=== PATIENT | female | born 1935 | race African-American/Black ===

== ENCOUNTER 2016-11-29 18:52 | Emergency (ER) | payer MEDICAID, MEDICARE, OTHER ==
[~2016-11-29] VITALS: Ht 153 cm; Wt 76.7 kg
--- NOTE | 2016-11-29 19:29 | Emergency Room Report ---
History of Present Illness General Chief Complaint: Skin Rash/Abscess Source: Patient Present Illness HPI 81-year-old female presents to emergency Department complaining of erythema, swelling and tenderness to right side of her forehead x3 days. Patient states she believes she was bit by a spider. Patient reports feeling small area of tenderness which has progressed to a swollen lump with erythema. She states that the lump and now has begun to have a "head" on it she denies fevers or chills. Patient denies pain that radiates down the face numbness of the face, or discharge. rates her pain as 8/10 in severity, localized. She states she is up-to-date with vaccinations including tetanus. Denies itching or lesions elsewhere on the body. Pt denies taking blood thinning medications. Denies CP , Palpitations, LOC, AMS, dizziness, Changes in Vision, Sensation, paresthesias , or a sudden severe headache. Allergies: Coded Allergies: CODEINE (Verified Allergy, Unknown, RASH, 12/03/10) MORPHINE (Verified Allergy, Unknown, RASH, 12/03/10) Patient History Past Medical History: see triage record Past Surgical History: none Pertinent Family History: none Now: No Immunizations: UTD Reviewed Nursing Documentation: PMH: Agreed, PSxH: Agreed Nursing Documentation-PMH Past Medical History: No History, Except For Hx Cardiac Problems: Yes - A-FIB Hx Hypertension: Yes Hx Diabetes: Yes Review of Systems All Other Systems: negative except mentioned in HPI Physical Exam Vital Signs Date Time Temp Pulse Resp B/P Pulse Ox O2 Delivery O2 Flow Rate FiO2 11/29/16 19:00 98.2 69 16 159/68 98 Room Air Sp02 EP Interpretation: reviewed, normal General Appearance: no apparent distress, alert, GCS 15, non-toxic Head: normocephalic, atraumatic, other - erythema, swelling and fluctuance palpated to lump on the right forehead approximately 1cm in size. Eyes: bilateral eye PERRL, bilateral eye normal inspection ENT: hearing grossly normal, normal pharynx, no angioedema, normal voice Neck: full range of motion, supple/symm/no masses Respiratory: lungs clear, normal breath sounds, speaking full sentences Cardiovascular #1: regular rate, rhythm Musculoskeletal: gait/station normal, normal range of motion Neurologic: alert, oriented x3, responsive, motor strength/tone normal, sensory intact, speech normal Psychiatric: judgement/insight normal, memory normal, mood/affect normal Skin: normal color, no rash, warm/dry, well hydrated, other - erythema, swelling and fluctuance palpated to lump on the right forehead approximately 1cm in size. Lymphatic: no adenopathy Procedures Incision and Drainage Incision and Drainage : Consent: Verbal Site: right lateral forehead Blade Size: 11 I & D Procedure: betadine prep Wound Location: face - right lateral forehead Wound's Depth, Shape: superficial Wound Length (cm): 1 Wound Explored: contaminated - thick purulent d/c Anesthesia: Lidocaine w/ Epi Splint Applied?: No Sling Applied?: No Patient Tolerated: Well Complications: None Medical Decision Making PA Attestation Dr. Dominique is my supervising Physician whom patient management has been discussed with. Diagnostic Impression: Primary Impression: Abscess ER Course 81-year-old female presents to emergency Department complaining of erythema, swelling and tenderness to right side of her forehead x3 days. Patient states she believes she was bit by a spider. Patient reports feeling small area of tenderness which has progressed to a swollen lump with erythema. She states that the lump and now has begun to have a "head" on it she denies fevers or chills. Patient denies pain that radiates down the face numbness of the face, or discharge. She states she is up-to-date with vaccinations including tetanus. Denies itching or lesions elsewhere on the body. Pt denies taking blood thinning medications. Ddx considered but are not limited to cellulitis, abscess, cystic acne, necrotizing fasciitis, insect bite. Vital signs: are WNL, pt. is afebrile H&PE are most consistent with abscess vs. infected cyst. ORDERS: none required at this time, the diagnosis is clinical ED INTERVENTIONS: -500mg Tylenol PO -I & D. - Bacitracin and band-aid are applied -d/w pt. that likely a cyst due to the thick purulent material that was expressed, and that cysts typically recur if they are not completely surgically removed which would need to be coordinated by her PCP. DISCHARGE: At this time pt. is stable for d/c to home. Will provide printed patient care instructions, and any necessary prescriptions. Care plan and follow up instructions have been discussed with the patient prior to discharge. Last Vital Signs Date Time Temp Pulse Resp B/P Pulse Ox O2 Delivery O2 Flow Rate FiO2 11/29/16 19:00 98.2 69 16 159/68 98 Room Air Disposition: HOME, SELF-CARE Condition: Stable Scripts Acetaminophen* (TYLENOL EXTRA STRENGTH*) 500 Mg Tablet 500 MG ORAL Q6H, #30 TAB 0 Refills Prov: Liudmila Sarah 11/29/16 Bacitracin/Polymyxin B Sulfate (BACITRACIN-POLYMYXIN OINTMENT) 28.35 Gm Oint...g. 1 APPLIC TP BID, #28.3 GM Prov: Liudmila aSrah 11/29/16 Cephalexin* (KEFLEX*) 500 Mg Capsule 500 MG ORAL EVERY 12 HOURS for 7 Days, #14 CAP 0 Refills Prov: Liudmila Sarah 11/29/16 Patient Instructions: Abscess Additional Instructions: Take medications as directed. Follow up with PCP in 3-5 days Return sooner to ED if new symptoms occur, or current symptoms become worse. - Please note that this Emergency Department Report was dictated using [employer] painter technology software, occasionally this can lead to erroneous entry secondary to interpretation by the dictation equipment. Liudmila Sarah Nov 29, 2016 19:29
[2016-11-29] MEDS ORDERED: Lidocaine 1% 10mg/ml/EPI 0.01mg/ml 50ml INJ ONE (19:30)
[2016-11-29] MEDS ORDERED: Bacitracin Oint UD TOPIC ONE (19:30)
[2016-11-29] MEDS ORDERED: Lidocaine 1% MPF 10mg/ml 5ml ONE (19:38)
[2016-11-29] MEDS ORDERED: BACITRACIN-P28.35 GM TP (19:44)
[2016-11-29] MEDS ORDERED: CEPHALEXIN500 MG ORAL (19:44)
[2016-11-29] MEDS ORDERED: TYLENOL EXTRA500 MG ORAL (20:10)
[2016-11-29 20:11] VITALS: BP 141/72
[2016-11-29 20:12] VITALS: BP 150/65
[2016-11-29 20:18] VITALS: BP 150/65
== END 2016-11-29 20:18 | disposition home or self-care (01) ==
LOC: EMR 20:12
DX: L02.01 Cutaneous abscess of face (principal); R21 Rash and other nonspecific skin eruption; E11.9 Type 2 diabetes mellitus without complications; R22.0 Localized swelling, mass and lump, head; Z88.5 Allergy status to narcotic agent; I48.91 Unspecified atrial fibrillation; I10 Essential (primary) hypertension
CPT/HCPCS: 10060

== ENCOUNTER 2018-03-13 23:51 | Inpatient (IN) | payer MEDICARE ==
[~2018-03-13] VITALS: Ht 152.4 cm; Wt 85.3 kg
[~2018-03-13 23:51] MED LIST: BACITRACIN-P28.35 GM TP; CEPHALEXIN500 MG ORAL; TYLENOL EXTRA500 MG ORAL
[2018-03-14] MEDS ORDERED: Sodium Chloride 500ML 500 ML IV ONE (00:23)
[2018-03-14 00:53] LABS: EOSINOPHILS % (AUTO) 3.1 % (0.0-3.0); HEMATOCRIT 35.8 % (37.0-47.0); HEMOGLOBIN 12.3 G/DL (12.0-16.0); LYMPHOCYTES % (AUTO) 25.1 % (20.0-45.0); MEAN CORPUSCULAR VOLUME 86 FL (80-99); MONOCYTES % (AUTO) 11.3 % (1.0-10.0); NEUTROPHILS % (AUTO) 59.5 % (45.0-75.0); PLATELET COUNT 227 K/UL (150-450); RED BLOOD COUNT 4.17 M/UL (4.20-5.40); RED CELL DISTRIBUTION WIDTH 11.8 % (11.6-14.8); WHITE BLOOD COUNT 7.3 K/UL (4.8-10.8)
--- NOTE | 2018-03-14 01:00 | Emergency Room Report ---
History of Present Illness General Chief Complaint: Generalized Weakness Source: Patient Present Illness HPI Is an 82-year-old female with history of high blood pressure. She presents with chief complaint of dizziness and near-syncope. She was in bed and needed to get up to go the restroom. She said she felt lightheaded and almost passed out. She has to grab onto the dresser. She is better now when she is sitting down. Per EMS her blood pressure is very high. No nausea no vomiting. Patient said her heart was beating fast and she was sweaty. Denies any chest pain. Never had this problem before. Allergies: Coded Allergies: CODEINE (Verified Allergy, Unknown, RASH, 12/03/10) MORPHINE (Verified Allergy, Unknown, RASH, 12/03/10) Patient History Past Medical History: see triage record, old chart reviewed, HTN Past Surgical History: other Pertinent Family History: none Social History: Denies: smoking Now: No Immunizations: other Reviewed Nursing Documentation: PMH: Agreed; PSxH: Agreed Nursing Documentation-PMH Hx Cardiac Problems: Yes - A-FIB Hx Hypertension: Yes Hx Pacemaker: Yes Hx Diabetes: Yes Review of Systems Eye: Denies: eye pain, blurred vision ENT: Denies: ear pain, nose congestion, throat swelling Respiratory: Denies: cough, shortness of breath Cardiovascular: Reports: palpitations; Denies: chest pain Gastrointestinal: Denies: abdominal pain, diarrhea, nausea, vomiting Musculoskeletal: Denies: back pain, joint pain Skin: Denies: rash Neurological: Denies: headache, numbness Endocrine: Denies: increased thirst, increased urine Hematologic/Lymphatic: Denies: easy bruising All Other Systems: negative except mentioned in HPI Physical Exam Vital Signs Date Time Temp Pulse Resp B/P (MAP) Pulse Ox O2 Delivery O2 Flow Rate FiO2 03/13/18 23:48 98.2 71 16 200/76 94 Room Air 98.2 vitals with high blood pressure Sp02 EP Interpretation: reviewed, normal General Appearance: well appearing, no apparent distress, alert Head: normocephalic, atraumatic Eyes: bilateral eye PERRL, bilateral eye EOMI ENT: hearing grossly normal, normal pharynx Neck: full range of motion, supple, no meningismus Respiratory: chest non-tender, lungs clear, normal breath sounds Cardiovascular #1: regular rate, rhythm, no murmur Gastrointestinal: normal bowel sounds, non tender, no mass, no organomegaly, no bruit, non-distended Musculoskeletal: back normal, gait/station normal, normal range of motion Psychiatric: mood/affect normal Skin: warm/dry Medical Decision Making Diagnostic Impression: Primary Impression: Near syncope Additional Impressions: Hypertension Qualified Codes: I10 - Essential (primary) hypertension CKD (chronic kidney disease) Qualified Codes: N18.9 - Chronic kidney disease, unspecified ER Course Patient presents with dizziness and near syncope. This may be orthostatic. Based on her age and medical history, it is prudent to admit her or transfer her for further monitoring. No evidence of TIA or CVA. No evidence of arrhythmia here. I discussed case with Dr. Amezquita for admission. Lab Results Impression labs unremarkable. EKG Diagnostic Results Rate: normal Rhythm: NSR ST Segments: no acute changes Rhythm Strip Diag. Results Rhythm Strip Time: 01:00 EP Interpretation: yes Rate: 65 Rhythm: NSR, no PVC's, no ectopy Chest X-Ray Diagnostic Results Chest X-Ray Diagnostic Results : Chest X-Ray Ordered: Yes # of Views/Limited/Complete: 1 View Indication: Chest Pain EP Interpretation: Yes Interpretation: no consolidation, no effusion, no pneumothorax, no acute cardiopulmonary disease Impression: No acute disease Electronically Signed by: Mookie Rosado MD Last Vital Signs Date Time Temp Pulse Resp B/P (MAP) Pulse Ox O2 Delivery O2 Flow Rate FiO2 03/13/18 23:48 98.2 71 16 200/76 94 Room Air 98.2 Status: improved Disposition: ADMITTED INPATIENT Condition: Serious Referrals: BRITTANY HOLBROOK (PCP) MOOKIE ROSADO M.D. Mar 14, 2018 01:00
[2018-03-14 01:15] LABS: ALKALINE PHOSPHATASE 149 U/L (46-116); ANION GAP 7 mmol/L (5-15); BILIRUBIN,TOTAL 0.3 MG/DL (0.2-1.0); BLOOD UREA NITROGEN 22 mg/dL (7-18); CALCIUM 8.9 MG/DL (8.5-10.1); CARBON DIOXIDE 25 MMOL/L (21-32); CHLORIDE 110 MMOL/L (98-107); CKMB 0.7 NG/ML (0.0-3.6); CREATINE KINASE 98 U/L (26-308); CREATININE 1.8 MG/DL (0.55-1.30); POTASSIUM 3.8 MMOL/L (3.5-5.1); SODIUM 142 MMOL/L (136-145)
--- NOTE | 2018-03-14 01:27 | Diagnostic Imaging Report ---
EXAM: XR Chest, 1 View CLINICAL HISTORY: SYNCOPE TECHNIQUE: Frontal view of the chest. COMPARISON: 12/08/2010 FINDINGS: Lungs: Unremarkable. No consolidation. Pleural space: Unremarkable. No pneumothorax. Heart: Stable cardiomediastinal silhouette. Mediastinum: See above. Bones/joints: No acute osseous abnormality. Tubes, lines and devices: Left chest wall cardiac pacemaker. IMPRESSION: No acute cardiopulmonary process.
[2018-03-14 01:37] LABS: ALANINE AMINOTRANSFERASE 39 U/L (12-78); ALBUMIN 3.4 G/DL (3.4-5.0); ASPARTATE AMINO TRANSFERASE 28 U/L (15-37)
[2018-03-14 01:39] LABS: ALBUMIN/GLOBULIN RATIO 0.8 (1.0-2.7)
[2018-03-14 01:55] VITALS: BP 184/86
[2018-03-14] MEDS ORDERED: Labetalol 5mg/ml 20ml vial IV ONE (02:00)
[2018-03-14] MEDS ORDERED: UNOBMED (02:14)
[2018-03-14 02:24] VITALS: BP 168/64
[2018-03-14 02:37] VITALS: BP 164/71
[2018-03-14 04:00] VITALS: BP 169/76
[2018-03-14] MEDS ORDERED: Milk of Magnesia 30ml Ud ORAL PRN (05:15)
[2018-03-14] MEDS ORDERED: Nitroglycerin Subl 0.4mg tab SL PRN (05:15)
[2018-03-14 07:53] LABS: BASOPHILS % (AUTO) 0.6 % (0.0-2.0); EOSINOPHILS % (AUTO) 3.7 % (0.0-3.0); HEMATOCRIT 35.3 % (37.0-47.0); HEMOGLOBIN 11.8 G/DL (12.0-16.0); LYMPHOCYTES % (AUTO) 28.7 % (20.0-45.0); MEAN CORPUSCULAR VOLUME 88 FL (80-99); MONOCYTES % (AUTO) 9.2 % (1.0-10.0); NEUTROPHILS % (AUTO) 57.8 % (45.0-75.0); PLATELET COUNT 211 K/UL (150-450); RED BLOOD COUNT 4.04 M/UL (4.20-5.40); RED CELL DISTRIBUTION WIDTH 12.1 % (11.6-14.8); WHITE BLOOD COUNT 6.9 K/UL (4.8-10.8)
[2018-03-14 08:58] LABS: ALANINE AMINOTRANSFERASE 40 U/L (12-78); ALBUMIN 3.2 G/DL (3.4-5.0); ALBUMIN/GLOBULIN RATIO 0.7 (1.0-2.7); ALKALINE PHOSPHATASE 133 U/L (46-116); ANION GAP 10 mmol/L (5-15); ASPARTATE AMINO TRANSFERASE 31 U/L (15-37); BILIRUBIN,TOTAL 0.3 MG/DL (0.2-1.0); BLOOD UREA NITROGEN 19 mg/dL (7-18); CALCIUM 8.9 MG/DL (8.5-10.1); CARBON DIOXIDE 25 MMOL/L (21-32); CHLORIDE 110 MMOL/L (98-107); CREATININE 1.8 MG/DL (0.55-1.30); POTASSIUM 3.5 MMOL/L (3.5-5.1); SODIUM 144 MMOL/L (136-145)
[2018-03-14] MEDS ORDERED: Heparin 5000 units/ml inj SUBQ SCH (09:00)
[2018-03-14] MEDS: Aspirin Baby 81mg ORAL SCH (09:14)
[2018-03-14 13:38] LABS: INR 1.4 (0.9-1.1)
[2018-03-14] MEDS: Losartan 50mg tab ORAL SCH (14:15)
[2018-03-14] MEDS: dilTIAZem HCl 30mg tab ORAL SCH ×2 (14:15→21:12)
[2018-03-14] MEDS ORDERED: Xarelto 10mg tab ORAL SCH (16:30)
[2018-03-14] MEDS ORDERED: Levemir Flexpen SUBQ SCH (16:30)
[2018-03-14] MEDS: NovoLOG Insulin Flexpen SUBQ SCH ×2 (16:46→20:26)
[2018-03-14 20:00] VITALS: BP 172/81
--- NOTE | 2018-03-14 22:16 | History and Physical Report ---
DATE OF ADMISSION: 03/14/2018 CHIEF COMPLAINT AND REASON FOR HOSPITALIZATION: The patient admitted with near syncope, dizziness, and weakness. HISTORY OF PRESENT ILLNESS: The patient is an 82-year-old lady with a history of pacemaker, atrial fibrillation, insulin-dependent diabetes, obesity. She was in her usual state of health but had some diarrhea yesterday and she got out of bed to go to the bathroom and felt dizzy and had ease herself to the ground and almost passed out. She states she did not have a complete episode of syncope. She felt very weak and paramedics were called and per the EMS her blood pressure was very high and the patient states her heart was beating fast and she was sweaty at that time. It is not clear if her sugar was checked at that time. The patient has a history of insulin-dependent diabetes, hypertension, hyperlipidemia, atrial fibrillation. She states she is somewhat short of breath on arrival but this is better right now. She denies any chest pressure. PAST SURGICAL HISTORY: She has had cataract in both eyes, hysterectomy, and a kidney procedure which she cannot articulate. MEDICATIONS: Lantus 60 units daily, Xarelto 20 mg daily, diltiazem 80 mg daily, atorvastatin 10 mg daily, losartan 50 mg daily, and one other medicine which she cannot identify. ALLERGIES: None known. HABITS: She is a nondrinker and nonsmoker. No use of illicit drugs. SYSTEM REVIEW: HEAD, EYES, EARS, NOSE, AND THROAT: There is mild decrease in visual acuity. Hearing is good. No tinnitus. ENDOCRINE: History of obesity and diabetes. No known thyroid disease. PULMONARY: No asthma, TB, or chronic cough. CARDIAC: See history of present illness. GASTROINTESTINAL: History of recent diarrhea, not chronic. No nausea, vomiting, abdominal pain. GENITOURINARY: No dysuria or hematuria. There is occasional incontinence. 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 MUSCULOSKELETAL: History of osteoarthritis and mild generalized joint pain. PHYSICAL EXAMINATION: GENERAL: The patient is alert, obese lady, seen with a nurse. She is sitting at the edge of the bed. VITAL SIGNS: Orthostatics vital signs, supine 187/76, pulse 65, sitting 179/99, pulse 65, standing 120/43, pulse 83, temperature was 98.1, O2 saturation 97% on room air. HEAD, EYES, EARS, NOSE, AND THROAT: Sclerae are nonicteric. Ocular motions intact in all directions. Oral mucosa moist. NECK: No adenopathy or thyroid enlargement. LUNGS: Clear. HEART: Regular rhythm. I hear no murmur. ABDOMEN: Soft without organomegaly or masses. EXTREMITIES: No edema, cyanosis, or clubbing. There are some degenerative changes in the knees. NEUROLOGIC: She is alert and oriented. Cranial nerves are intact. She moves all extremities equally. LABORATORY AND DIAGNOSTIC DATA: Chest x-ray shows no active disease. White count 6.9, hemoglobin 11.8. Sodium 145, potassium 3.5, BUN 19, creatinine 1.8. Troponin 0.017 and 0.000. Albumin 3.2. TSH 3.199. IMPRESSION: 1. Near syncope. 2. Orthostatic . 3. History of pacemaker. 4. History of atrial fibrillation. 5. History of anticoagulation. 6. History of hypertension. 7. History of hyperlipidemia. 8. History of insulin-dependent diabetes at risk for diabetic autonomic insufficiency. PLAN: 1. We will watch orthostatic blood pressures. 2. Monitor heart for any cardiac arrhythmia. 3. Watch for any new neurologic findings. 4. The patient tells me, her Code Status is DNR. Billy Amezquita M.D. DR: Dana JOB#: [id number] CC:
[2018-03-15] VITALS: BP 187/66
[2018-03-15 04:00] VITALS: BP 175/77
[2018-03-15] MEDS: dilTIAZem HCl 30mg tab ORAL SCH ×2 (05:29→13:38)
[2018-03-15] MEDS: NovoLOG Insulin Flexpen SUBQ SCH ×2 (05:31→12:28)
[2018-03-15 07:42] LABS: BASOPHILS % (AUTO) 1.4 % (0.0-2.0); EOSINOPHILS % (AUTO) 4.7 % (0.0-3.0); HEMATOCRIT 35.4 % (37.0-47.0); HEMOGLOBIN 11.5 G/DL (12.0-16.0); LYMPHOCYTES % (AUTO) 23.8 % (20.0-45.0); MEAN CORPUSCULAR VOLUME 88 FL (80-99); MONOCYTES % (AUTO) 10.6 % (1.0-10.0); NEUTROPHILS % (AUTO) 59.5 % (45.0-75.0); PLATELET COUNT 206 K/UL (150-450); RED BLOOD COUNT 4.02 M/UL (4.20-5.40); RED CELL DISTRIBUTION WIDTH 11.9 % (11.6-14.8); WHITE BLOOD COUNT 6.3 K/UL (4.8-10.8)
[2018-03-15 08:00] VITALS: BP 155/75
[2018-03-15 08:14] LABS: ANION GAP 10 mmol/L (5-15); BLOOD UREA NITROGEN 18 mg/dL (7-18); CALCIUM 8.7 MG/DL (8.5-10.1); CARBON DIOXIDE 24 MMOL/L (21-32); CHLORIDE 109 MMOL/L (98-107); CREATININE 1.7 MG/DL (0.55-1.30); SODIUM 143 MMOL/L (136-145)
[2018-03-15] MEDS: Aspirin Baby 81mg ORAL SCH (09:14)
[2018-03-15] MEDS: Losartan 50mg tab ORAL SCH (09:15)
--- NOTE | 2018-03-15 13:29 | Cardiology Report ---
APPROVED REPORT EKG Measurement Heart [id number] Atrial paced, ventricular sensed rhythm Electronic pacemaker Septal infarct, age undetermined Abnormal ECG
[2018-03-15 13:38] VITALS: BP 155/75
[2018-03-15] MEDS ORDERED: LANTUS SOL100 UNIT/1 SUBQ (14:04)
[2018-03-15] MEDS ORDERED: DILT-XR120 MG PO (14:04)
[2018-03-15] MEDS ORDERED: LIPITOR10 MG ORAL (14:04)
[2018-03-15] MEDS ORDERED: COZAAR50 MG ORAL (14:04)
[2018-03-15] MEDS ORDERED: XARELTO10 MG ORAL (14:04)
--- NOTE | 2018-03-16 01:15 | Discharge Summary ---
DATE OF ADMISSION: 03/14/2018 DATE OF DISCHARGE: 03/15/2018 PERTINENT HISTORY: The patient came late night of 03/13/2018 to the emergency room with an episode of syncope and near syncope. She apparently got severely dizzy after having diarrhea and going to the bathroom and had a near syncopal episode and presented to the emergency room. There is a history of insulin-dependent diabetes, atrial fibrillation, anticoagulation with Xarelto, and hypertension. PERTINENT PHYSICAL FINDINGS: GENERAL: The patient is alert and oriented. LUNGS: Clear. HEART: Regular rhythm. ABDOMEN: Soft without organomegaly. EXTREMITIES: No edema. NEUROLOGIC: She is alert and oriented. No focal findings. COURSE IN THE HOSPITAL: The patient was monitored on telemetry in a regular paced rhythm. Troponin 0.017 and 0.000. There were no arrhythmias. No severe orthostatic hypotension. No episodes of chest pain. She had a potassium of 3.5, repeat 4.0. There was a mild low albumin of 3.2 and a normal TSH of 3.199. She felt better and on day of discharge, her vital signs were stable. Lungs, clear. Heart, regular rhythm. Abdomen was soft and she was discharged home in stable condition. FINAL DIAGNOSES: 1. Syncope or near syncope. 2. Diarrhea, resolved. 3. Insulin-dependent diabetes. 4. History of pacemaker. 5. History of atrial fibrillation. 6. History of anticoagulation with Xarelto. DISCHARGE DISPOSITION: Home on diabetic diet. MEDICATIONS: Per the discharge medication list. FOLLOWUP: Follow up in the office with Dr. Amezquita and/or her prior doctors as sees fit. Billy Amezquita M.D. DR: Nicolle JOB#: [id number] CC:
--- NOTE | 2018-03-29 18:45 | Physician Query ---
--------- THIS DOCUMENT IS A PERMANENT PART OF THE MEDICAL RECORD --------- PLEASE COMPLETE THE DOCUMENT BEFORE SIGNING Dear Dr. Billy Amezquita Date: 03/29/18 Transmission Engineer/CDS Name: Autumn Glass CCS Exercise your independent professional judgment when responding to query. Question asked do not imply a particular answer is desired/expected Clinical Documentation States: The patient came late night of 03/13/2018 to the emergency room with an episode of syncope and near syncope. She apparently got severely dizzy after having diarrhea and going to the bathroom. The patient was monitored on telemetry in a regular paced rhythm. Troponin 0.017 and 0.000. There were no arrhythmias. No severe orthostatic hypotension. No episodes of chest pain. Please specify the cause of syncope as: [] Autonomic Imbalance [] Autonomic Dysfunction [] Orthostatic Hypotension [] Psychogenic [] Shock [] Dehydration [] Dialysis Disequilibrium Syndrome [] Heat [] Other: [x] Unable to determine Please also document in your Progress Notes and/or Discharge Summary and indicate if the condition was present on admission. Billy Amezquita MD Date and Time MTDD
== END 2018-03-15 15:15 | disposition home or self-care (01) | DRG 312 ==
LOC: EDBD 23:51 → EMR 03-14 00:01 → 2E 03-14 01:02 → EDBEDREQ 03-14 01:08 → 2E 03-15 12:15
DX: R55 Syncope and collapse (principal); E11.9 Type 2 diabetes mellitus without complications; E66.9 Obesity, unspecified; I10 Essential (primary) hypertension; E78.5 Hyperlipidemia, unspecified; I48.91 Unspecified atrial fibrillation; R19.7 Diarrhea, unspecified; Z68.36 Body mass index [BMI] 36.0-36.9, adult; Z95.0 Presence of cardiac pacemaker; Z79.4 Long term (current) use of insulin; Z66 Do not resuscitate; Z79.01 Long term (current) use of anticoagulants
CPT/HCPCS: 36415; 71045; 80048; 80053; 82550; 82553; 82962; 83735; 83880; 84443; 84484; 85025; 85610; 93005; 99285; J1815; S5561

== ENCOUNTER 2018-09-04 00:59 | Emergency (ER) | payer MEDICARE ==
[~2018-09-04] VITALS: Ht 154.9 cm; Wt 79.4 kg
[~2018-09-04 00:59] MED LIST changes: +COZAAR50 MG ORAL; +DILT-XR120 MG PO; +LANTUS SOL100 UNIT/1 SUBQ; +LIPITOR10 MG ORAL; +UNOBMED; +XARELTO10 MG ORAL
[2018-09-04] MEDS ORDERED: LINZESS145 MCG PO (01:10)
[2018-09-04] MEDS ORDERED: LANTUS5 UNITS SUBQ (01:10)
[2018-09-04] MEDS ORDERED: CLONIDINE HCL0.1 MG PO (01:10)
--- NOTE | 2018-09-04 01:40 | Emergency Room Report ---
History of Present Illness General Chief Complaint: Vomiting Source: Patient Present Illness HPI This is an 82-year-old female with cardiac history, diabetes, hypertension and pacemaker. She presents with chief complaint of dizziness and syncope. Symptom been ongoing for last 3-4 days. She complaining of dizziness with room spinning. Tonight symptom worsen when she got up she said she was diaphoretic and had a syncopal episode. No trauma. Still felt dizzy. Denies any fever or chills. Denies any diarrhea. Has nausea and vomiting with dizziness. No other complaint. Her daughter, patient had black stool for one week. Patient did mention that it 's been 2 weeks now. She is currently taking Xarelto for A. fib. She had a syncopal episode today but did not remember any fall in the last week. Denies any head injury today. Allergies: Coded Allergies: No Known Allergies (Unverified , 09/04/18) Patient History Past Medical History: see triage record, old chart reviewed, DM, CAD Past Surgical History: pacemaker Pertinent Family History: none Social History: Denies: smoking Last Menstrual Period: 3 decades ago Now: No Immunizations: other Reviewed Nursing Documentation: PMH: Agreed; PSxH: Agreed Nursing Documentation-PMH Hx Cardiac Problems: Yes - A-FIB Hx Hypertension: Yes Hx Pacemaker: Yes Hx Diabetes: Yes Review of Systems Eye: Denies: eye pain, blurred vision ENT: Denies: ear pain, nose congestion, throat swelling Respiratory: Denies: cough, shortness of breath Cardiovascular: Denies: chest pain, palpitations Gastrointestinal: Denies: abdominal pain, diarrhea, nausea, vomiting Musculoskeletal: Denies: back pain, joint pain Skin: Denies: rash Neurological: Reports: dizziness; Denies: headache, numbness Endocrine: Denies: increased thirst, increased urine Hematologic/Lymphatic: Denies: easy bruising All Other Systems: negative except mentioned in HPI Physical Exam Vital Signs Date Time Temp Pulse Resp B/P (MAP) Pulse Ox O2 Delivery O2 Flow Rate FiO2 09/04/18 01:04 98.1 79 16 149/68 98 Room Air vitals normal Sp02 EP Interpretation: reviewed, normal General Appearance: well appearing, no apparent distress, alert Head: normocephalic, atraumatic Eyes: bilateral eye PERRL, bilateral eye EOMI ENT: hearing grossly normal, normal pharynx Neck: full range of motion, supple, no meningismus Respiratory: chest non-tender, lungs clear, normal breath sounds Cardiovascular #1: regular rate, rhythm, no murmur Gastrointestinal: normal bowel sounds, non tender, no mass, no organomegaly, no bruit, non-distended Musculoskeletal: back normal, gait/station normal, normal range of motion Psychiatric: mood/affect normal Skin: warm/dry Procedures Critical Care Time Critical Care Time Critical care is mandated in this patient who presented with subdural hematoma and GI bleed. Patient require my urgent intervention to attenuate the risks of () which may lead to cardiovascular collapse and . Critical care time is 35 minutes excluding any reportable procedure. Critical care time included evaluation, multiple reevaluation, looking at old charts, interpreting laboratory and diagnostic data, discussing case with patient and family and consultants, and charting. Medical Decision Making Diagnostic Impression: Primary Impression: Subdural hematoma without coma Qualified Codes: S06.5X0A - Traumatic subdural hemorrhage without loss of consciousness, initial encounter Additional Impressions: GI bleeding Qualified Codes: K92.2 - Gastrointestinal hemorrhage, unspecified Anemia Qualified Codes: D64.9 - Anemia, unspecified Type 1 diabetes mellitus with hyperglycemia ER Course Patient presents with weakness and syncope. This probably secondary to GI bleeding most likely gastric in nature. She does have a very low hemoglobin with melena. She does not remember having a fall. There is a small left frontal scalp contusion. She does have according to radiologist most likely has small intracranial bleed, subdural. She is currently on Xarelto. She is neurologically intact with a GCS of 15. Because of the bleed with transfer to [facility] for higher level of care. I discussed case with Dr. Fried, Neurosurgeon at [facility]. She accepted pt for transfer as higher level of care. Laboratory Tests Test 09/04/18 01:45 White Blood Count 14.2 K/UL (4.8-10.8) H Red Blood Count 2.07 M/UL (4.20-5.40) L Hemoglobin 6.3 G/DL (12.0-16.0) *L Hematocrit 18.6 % (37.0-47.0) L Mean Corpuscular Volume 90 FL (80-99) Mean Corpuscular Hemoglobin 30.2 PG (27.0-31.0) Mean Corpuscular Hemoglobin Concent 33.7 G/DL (32.0-36.0) Red Cell Distribution Width 14.2 % (11.6-14.8) Platelet Count 245 K/UL (150-450) Mean Platelet Volume 7.1 FL (6.5-10.1) Neutrophils (%) (Auto) % (45.0-75.0) Lymphocytes (%) (Auto) % (20.0-45.0) Monocytes (%) (Auto) % (1.0-10.0) Eosinophils (%) (Auto) % (0.0-3.0) Basophils (%) (Auto) % (0.0-2.0) Prothrombin Time Pending Prothromb Time International Ratio Pending Activated Partial Thromboplast Time Pending Sodium Level 140 MMOL/L (136-145) Potassium Level 4.6 MMOL/L (3.5-5.1) Chloride Level 106 MMOL/L (98-107) Carbon Dioxide Level 26 MMOL/L (21-32) Anion Gap 8 mmol/L (5-15) Blood Urea Nitrogen 64 mg/dL (7-18) H Creatinine 2.3 MG/DL (0.55-1.30) H Estimat Glomerular Filtration Rate mL/min (>60) Glucose Level 228 MG/DL (74-106) H Calcium Level 8.9 MG/DL (8.5-10.1) Total Bilirubin 0.3 MG/DL (0.2-1.0) Aspartate Amino Transf (AST/SGOT) 24 U/L (15-37) Alanine Aminotransferase (ALT/SGPT) 37 U/L (12-78) Alkaline Phosphatase 95 U/L (46-116) Total Creatine Kinase 41 U/L (26-308) Creatine Kinase MB 0.8 NG/ML (0.0-3.6) Creatine Kinase MB Relative Index 1.9 Troponin I 0.006 ng/mL (0.000-0.056) Pro-B-Type Natriuretic Peptide 132 pg/mL (0-125) H Total Protein 7.1 G/DL (6.4-8.2) Albumin 3.5 G/DL (3.4-5.0) Globulin 3.6 g/dL Albumin/Globulin Ratio 1.0 (1.0-2.7) Lab Results Impression labs with anemia EKG Diagnostic Results Rate: normal Rhythm: NSR ST Segments: no acute changes Rhythm Strip Diag. Results Rhythm Strip Time: 01:40 EP Interpretation: yes Rate: 73 Rhythm: NSR, no PVC's, no ectopy Chest X-Ray Diagnostic Results Chest X-Ray Diagnostic Results : Chest X-Ray Ordered: Yes # of Views/Limited/Complete: 1 View Indication: Chest Pain EP Interpretation: Yes Interpretation: no consolidation, no effusion, no pneumothorax, no acute cardiopulmonary disease Impression: No acute disease Electronically Signed by: Mookie Rosado MD CT/MRI/US Diagnostic Results CT/MRI/US Diagnostic Results : Imaging Test Ordered: CT head Impression Read by radiologist. Trace hyperdense thickening along the anterior falx measuring up to 1.5 mm. This is most likely represent blood. Last Vital Signs Date Time Temp Pulse Resp B/P (MAP) Pulse Ox O2 Delivery O2 Flow Rate FiO2 09/04/18 01:04 98.1 79 16 149/68 98 Room Air Status: improved Disposition: XFER T-COUNT INCLUDES THE [facility] HOS[facility] Condition: Stable Mookie Rosado MD Sep 04, 2018 01:40
[2018-09-04] MEDS: Sodium Chloride 500ML 500 ML IV ONE (01:48)
[2018-09-04 01:54] VITALS: BP 149/68
[2018-09-04 01:55] LABS: HEMATOCRIT 18.6 % (37.0-47.0); MEAN CORPUSCULAR VOLUME 90 FL (80-99); PLATELET COUNT 245 K/UL (150-450); RED BLOOD COUNT 2.07 M/UL (4.20-5.40); RED CELL DISTRIBUTION WIDTH 14.2 % (11.6-14.8); WHITE BLOOD COUNT 14.2 K/UL (4.8-10.8)
[2018-09-04 02:02] LABS: HEMOGLOBIN 6.3 G/DL (12.0-16.0)
[2018-09-04 02:11] LABS: ANION GAP 8 mmol/L (5-15); BLOOD UREA NITROGEN 64 mg/dL (7-18); CALCIUM 8.9 MG/DL (8.5-10.1); CARBON DIOXIDE 26 MMOL/L (21-32); CHLORIDE 106 MMOL/L (98-107); CREATININE 2.3 MG/DL (0.55-1.30); POTASSIUM 4.6 MMOL/L (3.5-5.1); SODIUM 140 MMOL/L (136-145)
[2018-09-04 02:24] LABS: ALANINE AMINOTRANSFERASE 37 U/L (12-78); ALBUMIN 3.5 G/DL (3.4-5.0); ALKALINE PHOSPHATASE 95 U/L (46-116); ASPARTATE AMINO TRANSFERASE 24 U/L (15-37); BILIRUBIN,TOTAL 0.3 MG/DL (0.2-1.0); CKMB 0.8 NG/ML (0.0-3.6); CREATINE KINASE 41 U/L (26-308)
[2018-09-04 03:07] LABS: INR 1.7 (0.9-1.1)
[2018-09-04] MEDS: Pantoprazole Inj IVP ONE (03:26)
[2018-09-04] MEDS: cefTRIAXone 1 GM in NS 55 ML IVPB ONE (03:26)
[2018-09-04 04:36] VITALS: BP 190/45
[2018-09-04 04:39] LABS: APPEARANCE,URINE CLEAR; BILIRUBIN, URINE NEGATIVE (NEGATIVE); COLOR,URINE PALE YELLOW; GLUCOSE, URINE (UA) NEGATIVE (NEGATIVE); KETONES,URINE NEGATIVE (NEGATIVE); LEUKOCYTE ESTERASE ,URINE 1+ (NEGATIVE); NITRITE,URINE NEGATIVE (NEGATIVE); PH,URINE 5 (4.5-8.0); PROTEIN,URINE 1+ (NEGATIVE); UROBILINOGEN,URINE NORMAL MG/DL (0.0-1.0)
[2018-09-04 04:51] VITALS: BP 152/108
[2018-09-04 04:52] VITALS: BP 152/108
--- NOTE | 2018-09-05 15:48 | Diagnostic Imaging Report ---
Indication: Dyspnea Comparison: 03/14/2018 A single view chest radiograph was obtained. Findings: No definite infiltrate or pulmonary vascular congestion identified. Pacemaker again noted on the left. The heart is enlarged. The aorta is mildly enlarged consistent with atherosclerotic vascular disease. The bones are osteopenic. Impression: No acute disease
--- NOTE | 2018-09-05 15:48 | Diagnostic Imaging Report ---
Indication: Headache. Syncope. Head trauma Technique: Contiguous 5 mm thick transaxial imaging of the head obtained in a Siemens Sensation [address] scanner. Soft tissue and bone windows generated. Automatic Exposure Control was utilized. Total Dose length Product (DLP): 1288.[address] Dose Index Volume (CTDIvol): 70.38 mGy Comparison: none Findings: There is moderate prominence of the ventricles, basal cisterns, and cerebral sulci consistent with atrophy. Moderate, nonspecific, white matter hypoattenuation is noted throughout the brain consistent with chronic small vessel disease. Mild volume loss is noted along the right frontal white matter with slight ex vacuo dilatation of the frontal horn likely indicative of prior ischemia. There is a calcification of the interhemispheric fissure. Some question of subdural blood was raised on the preliminary reading. There is no midline shift, edema, mass effect, or abnormal extra-axial fluid collections. Bones and extra osseous soft tissues are unremarkable. Impression: Although doubtful the possibility of a subdural hematoma was raised involving the anterior interhemispheric fissure. Follow-up is suggested. No acute intracranial mass effect or edema. Moderate atrophy of the brain. Evidence of chronic small vessel disease involving white matter tracts. 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 [facility] has communicated the preliminary results to the Emergency Department. Their findings are largely concordant with this report. Critical value communication The CT scanner at [facility] is accredited by the [employer] and the scans are performed using dose optimization techniques as appropriate to a performed exam including Automatic Exposure control.
== END 2018-09-04 04:53 | disposition short-term general hospital (02) ==
LOC: EDBD 00:59 → EDUNIT# 00:59 → EMR 01:28
DX: S06.5X0A Traumatic subdural hemorrhage without loss of consciousness, initial encounter (principal); K92.2 Gastrointestinal hemorrhage, unspecified; D64.9 Anemia, unspecified; E10.65 Type 1 diabetes mellitus with hyperglycemia; N17.9 Acute kidney failure, unspecified; I48.91 Unspecified atrial fibrillation; Z95.0 Presence of cardiac pacemaker; Z79.01 Long term (current) use of anticoagulants
CPT/HCPCS: 36415; 70450; 71045; 80053; 81003; 82550; 82553; 83880; 84484; 85025; 85610; 85730; 86850; 86900; 86901; 86920; 93005; 96361; 96365; 96375; 99291; C9113; J0696; J7040; P9016

== ENCOUNTER 2019-10-17 16:32 | Emergency (ER) | payer MEDICARE, MEDICAID ==
[~2019-10-17] VITALS: Ht 154.9 cm; Wt 81.2 kg
[~2019-10-17 16:32] MED LIST changes: +CLONIDINE HCL0.1 MG PO; +LANTUS5 UNITS SUBQ; +LINZESS145 MCG PO
[2019-10-17 16:50] VITALS: BP 169/85
--- NOTE | 2019-10-17 16:50 | NUR ---
ED Nurse Note: Patient came to ED from home c/o nosebleed that will not stop x 1 day. Patient brought in by daughter. Patient taking Xarleto daily.
--- NOTE | 2019-10-17 18:01 | Emergency Room Report ---
History of Present Illness General Chief Complaint: Nosebleed Source: Patient (Liudmila Sarah) Present Illness HPI 84 YO female c/o nosebleed since waking up at 5am this am. Pt. on 15mg Xarelto daily for A-Fib. Denies trauma to the nose/face. She denies blowing her nose prior to onset. Her medication is distributed by daughter, no bruises or bleeding elsewhere. She denies taking more of her medication than rx'd. Pt. reports spitting/coughing out the blood draining down her throat. Denies pain, feeling lightheaded/dizzy,or having syncope. Patient has past medical history of A. fib and has a pacemaker. She denies headaches. (Liudmila Sarah) Allergies: Coded Allergies: No Known Allergies (Unverified , 09/04/18) Patient History Past Medical History: see triage record Past Surgical History: none Pertinent Family History: none Reviewed Nursing Documentation: PMH: Agreed; PSxH: Agreed (Liudmila Sarah) Nursing Documentation-PMH Hx Cardiac Problems: Yes - A-FIB, HYPERLIPIDEMIA, PACEMAKER Hx Hypertension: Yes Hx Pacemaker: Yes Hx Diabetes: Yes (Liudmila Sarah) Review of Systems All Other Systems: negative except mentioned in HPI (Liudmila Sarah) Physical Exam Vital Signs Date Time Temp Pulse Resp B/P (MAP) Pulse Ox O2 Delivery O2 Flow Rate FiO2 10/17/19 16:44 98.2 67 19 169/85 (113) 97 Room Air Sp02 EP Interpretation: reviewed, normal General Appearance: no apparent distress, alert, GCS 15, non-toxic Head: normocephalic, atraumatic Eyes: bilateral eye normal inspection, bilateral eye PERRL ENT: hearing grossly normal, normal voice, moist mucus membranes, other - no obvious blood from hessel bachs plexus. moderate amount of bright red blood in the left nare, as well as visualized draining down the pharynx Neck: full range of motion Respiratory: lungs clear, normal breath sounds, speaking full sentences Cardiovascular #1: regular rate, rhythm Musculoskeletal: normal range of motion, gait/station normal, non-tender Neurologic: alert, motor strength/tone normal, oriented x3, sensory intact, responsive, speech normal Psychiatric: judgement/insight normal Skin: normal color (Liudmila Sarah) Medical Decision Making PA Attestation Dr. Regan is my supervising Physician whom patient management has been discussed with. (Liudmila Sarah) PA Attestation I participate in the care of this patient along with MARY JO Knott Briefly, this an 84-year-old female on apixaban for atrial fibrillation presenting for evaluation of atraumatic epistaxis from the left nares. Concern for anterior and posterior bleed. The patient had a rapid Rhino packing placed without significant improvement. That was removed and the TXA soaked rapid Rhino with anterior and posterior balloon were placed and inflated. Patient had better control of the bleeding however continued to bleed both anteriorly and posteriorly though is far less than initial presentation. Labs have returned within normal limits. Patient has been accepted to [facility] under the [facility]. Spoke with Dr. Aubree Rajput of ENT. Considering embolization at this point. She is stable for transfer. Awaiting transportation. (Kevin Regan MD) Diagnostic Impression: Primary Impression: Epistaxis ER Course 84 YO female c/o nosebleed since waking up at 5am this am. Pt. on 15mg Xarelto daily for A-Fib. Denies trauma to the nose/face. She denies blowing her nose prior to onset. Her medication is distributed by daughter, no bruises or bleeding elsewhere. Pt. reports spitting/coughing out the blood draining down her throat. Denies denies, feeling lightheaded,or syncope. Patient has past medical history of A. fib and has a pacemaker. Ddx considered but are not limited to epistaxis , clotting disorder, above therapeutic levels on blood thinner. nasal trauma, septal hematoma. Vital signs: are WNL, pt. is afebrile H&PE are most consistent with: Posterior Epistaxis---no obvious blood from Hesselbach's plexus. moderate amount of bright red blood in the left nare, as well as visualized draining down the pharynx. -No evidence of trauma, ORDERS CBC: WNL -PT/PTT: 15.6/ 48H INR: 1.5 ED INTERVENTIONS -Anterior/posterior Nasal packing inserted. Hemostasis was not achieved. - Anterior & posterior Nasal packing was soaked in TXA and Inserted. upon re- evaluation again hemostasis has not been achieved. Pt. continues to cough up blood and clots, and blood continues to ooze out of the left nare. -Decision to admit and transfer for ENT evaluation. CRITICAL CARE TIME: Pt. presentation to the ED mandated critical care for significant persistent hemorrhage from the nose and being on blood thinning medications. Pt. required immediate intervention to assess the risks and attempt to prevent cardiovascular compromise that could lead to . Critical care time is minutes excluding any reportable procedure. Critical care time included evaluation, multiple reevaluation, looking at medication lists, interpreting laboratory and diagnostic data, discussing case multiple times with patient and family and consultants, and charting. Total Critical Care time Spent was 45 minutes. DISPOSITION: at this time pt. will be admitted for persistent epistaxis. Pt. to be transferred to [facility] for higher level of care and to be evaluated by on- call ENT to discuss embolization vs. cauterization. Dr. Rajput at [facility] has accepted the pt. and agrees to continue pt. care and management. Labs Test 10/17/19 21:03 White Blood Count 7.6 K/UL (4.8-10.8) Red Blood Count 4.23 M/UL (4.20-5.40) Hemoglobin 12.6 G/DL (12.0-16.0) Hematocrit 37.4 % (37.0-47.0) Mean Corpuscular Volume 89 FL (80-99) Mean Corpuscular Hemoglobin 29.8 PG (27.0-31.0) Mean Corpuscular Hemoglobin Concent 33.7 G/DL (32.0-36.0) Red Cell Distribution Width 12.1 % (11.6-14.8) Platelet Count 209 K/UL (150-450) Mean Platelet Volume 8.3 FL (6.5-10.1) Neutrophils (%) (Auto) 60.5 % (45.0-75.0) Lymphocytes (%) (Auto) 25.7 % (20.0-45.0) Monocytes (%) (Auto) 10.0 % (1.0-10.0) Eosinophils (%) (Auto) 2.4 % (0.0-3.0) Basophils (%) (Auto) 1.4 % (0.0-2.0) Prothrombin Time 15.6 SEC (9.30-11.50) Prothromb Time International Ratio 1.5 (0.9-1.1) Activated Partial Thromboplast Time 48 SEC (23-33) (Liudmila Sarah) Last Vital Signs Date Time Temp Pulse Resp B/P (MAP) Pulse Ox O2 Delivery O2 Flow Rate FiO2 10/17/19 16:50 98.2 87 19 169/85 97 Room Air (Liudmila Sarah) Disposition: ADMITTED INPATIENT Condition: Serious - unable to achieve hemostasis Liudmila Sarah Oct 17, 2019 18:01 Kevin Regan MD Oct 17, 2019 23:25
[2019-10-17 19:05] VITALS: BP 155/69
--- NOTE | 2019-10-17 19:05 | NUR ---
ED Nurse Note: Received report from Mike HERNANDEZ. Pt alert and oriented, verbally responisve. Not in any distress. Family members at bedside.
[2019-10-17] MEDS ORDERED: HYDROcodone/Acetamin 5/325 tab ORAL ONE (21:00)
[2019-10-17 21:41] LABS: BASOPHILS % (AUTO) 1.4 % (0.0-2.0); EOSINOPHILS % (AUTO) 2.4 % (0.0-3.0); HEMATOCRIT 37.4 % (37.0-47.0); HEMOGLOBIN 12.6 G/DL (12.0-16.0); LYMPHOCYTES % (AUTO) 25.7 % (20.0-45.0); MEAN CORPUSCULAR VOLUME 89 FL (80-99); NEUTROPHILS % (AUTO) 60.5 % (45.0-75.0); PLATELET COUNT 209 K/UL (150-450); RED BLOOD COUNT 4.23 M/UL (4.20-5.40); RED CELL DISTRIBUTION WIDTH 12.1 % (11.6-14.8); WHITE BLOOD COUNT 7.6 K/UL (4.8-10.8)
[2019-10-17 21:52] LABS: INR 1.5 (0.9-1.1)
--- NOTE | 2019-10-17 22:10 | NUR ---
ED Nurse Note: Pt awake, alert and oriented. Not in any distress. Pt's nose is not actively bleeding. Will cont to monitor.
[2019-10-17 22:18] VITALS: BP 147/71
[2019-10-18 01:12] VITALS: BP 154/83
--- NOTE | 2019-10-18 01:15 | NUR ---
ED Nurse Note: Pt assisted with toileting. No active bleeding noted. Will cont to monitor.
--- NOTE | 2019-10-18 02:15 | NUR ---
ED Nurse Note: Report given to Alyssa HERNANDEZ from [facility].
--- NOTE | 2019-10-18 03:05 | NUR ---
ED Nurse Note: Pt BP is 193/87. ERMD notified and order Hydralazine.
[2019-10-18 03:15] VITALS: BP 165/78
--- NOTE | 2019-10-18 03:15 | NUR ---
ED Nurse Note: Pt cleared by ERMD to be transferred. Report given to Alyssa HERNANDEZ. Pt was accompanied by 2 EMT and 1 RN via [facility]. Pt alert and oriented. Ambulatory. Not in any distress. IV line on right hand 20g patent and intact. No active bleeding noted. All belongings given to the patient. Family members aware of the transfer.
== END 2019-10-18 03:15 | disposition short-term general hospital (02) ==
LOC: EMR 19:20
DX: R04.0 Epistaxis (principal); Z79.01 Long term (current) use of anticoagulants; I10 Essential (primary) hypertension; E11.9 Type 2 diabetes mellitus without complications; Z95.0 Presence of cardiac pacemaker; E78.5 Hyperlipidemia, unspecified
CPT/HCPCS: 30901; 30905; 36415; 85025; 85610; 85730; 96374; 99291; J0360; 99284